=== PATIENT | male | born 1995 | race American Indian/Alaskan Native ===

== ENCOUNTER 2022-01-07 13:51 | Emergency (ER) | payer SELFPAY ==
[2022-01-07 15:36] VITALS: BP 134/68
--- NOTE | 2022-01-07 20:51 | Emergency Department Report ---
ED General Adult HPI - General Chief complaint: Chest Pain Stated complaint: SOB,CHEST PAIN ,HEADACHES Time Seen by Provider: 01/07/22 20:22 Source: patient Mode of arrival: Ambulatory Limitations: No Limitations - History of Present Illness Initial comments: Patient is a 26-year-old male with what he describes as "weird chest pain has been going on daily for 3 months. He states it feels like his chest is inflamed and is a burning sensation worse with movement and inspiration. He also has had some pain in his neck that is also worse with movement and palpation. He states he gets a little short of breath at times but not necessarily related to the chest pain. He does state that he has a history of asthma and has not needed inhalers for 10 years but he wonders if he is having episodes of asthma when this occurs. 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 He does agree that these pains have gotten worse since he started back to the new job. He does have a history of GERD as well but denies acid he taste in the back of his throat. He has not been taking his omeprazole. Location: chest Radiation: non-radiation Severity scale (0 -10): 5 Quality: burning Consistency: intermittent Improves with: none Worsens with: eating, movement Associated Symptoms: denies: confusion, cough, diaphoresis, fever/chills, headaches, loss of appetite, malaise, nausea/vomiting, rash, seizure, syncope, weakness Treatments Prior to Arrival: none - Related Data Previous Rx's Medication Instructions Recorded Last Taken Type Albuterol Sulfate [Proventil Hfa] 6.7 gm IH Q4HR PRN #1 can 01/07/22 Unknown Rx Cyclobenzaprine [Flexeril 10 MG 10 mg PO HS PRN #10 tab 01/07/22 Unknown Rx TAB] Naproxen Sodium [Naproxen Sodium 375 mg PO BID #20 tab 01/07/22 Unknown Rx Cr 375mg] Omeprazole 10 mg PO DAILY #30 cap 01/07/22 Unknown Rx Allergies Allergy/AdvReac Type Severity Reaction Status Date / Time No Known Allergies Allergy Unverified 01/07/22 15:31 ED Review of Systems ROS: Stated complaint: SOB,CHEST PAIN ,HEADACHES Other details as noted in HPI Comment: All other systems reviewed and negative Constitutional: denies: chills, fever Eyes: denies: eye discharge, vision change ENT: denies: throat pain, congestion Respiratory: see HPI Cardiovascular: as per HPI. denies: dyspnea on exertion, edema, syncope, paroxysmal nocturnal dyspnea Endocrine: denies: intolerance to cold, intolerance to heat Gastrointestinal: denies: nausea, vomiting, diarrhea Genitourinary: denies: hematuria Musculoskeletal: as per HPI Skin: denies: rash, lesions, change in color Neurological: denies: headache, weakness, numbness, paresthesias Psychiatric: denies: anxiety, depression Hematological/Lymphatic: denies: easy bleeding, easy bruising ED Past Medical Hx - Past Medical History Previous Medical History?: Yes Hx Asthma: Yes Additional medical history: HEART MURMUR/ POYLPS - Surgical History Past Surgical History?: No - Family History Family history: no significant, other (No history of coronary artery disease or other heart disease at young age.) - Social History Smoking Status: Never Smoker Substance Use Type: Marijuana - Medications Home Medications: Home Medications Medication Instructions Recorded Confirmed Last Taken Type Albuterol Sulfate [Proventil Hfa] 6.7 gm IH Q4HR PRN #1 can 01/07/22 Unknown Rx Cyclobenzaprine [Flexeril 10 MG 10 mg PO HS PRN #10 tab 01/07/22 Unknown Rx TAB] Naproxen Sodium [Naproxen Sodium 375 mg PO BID #20 tab 01/07/22 Unknown Rx Cr 375mg] Omeprazole 10 mg PO DAILY #30 cap 01/07/22 Unknown Rx ED Physical Exam - General Limitations: No Limitations General appearance: alert, in no apparent distress - Head Head exam: Present: atraumatic, normocephalic - Eye Eye exam: Present: normal appearance. Absent: scleral icterus, conjunctival i njection - ENT ENT exam: Present: mucous membranes moist - Neck Neck exam: Present: normal inspection, tenderness (Paraspinous muscles). Absent: meningismus, full ROM - Respiratory Respiratory exam: Present: normal lung sounds bilaterally, chest wall tenderness. Absent: respiratory distress, wheezes, rales, rhonchi - Cardiovascular Cardiovascular Exam: Present: regular rate, normal rhythm, normal heart sounds - GI/Abdominal GI/Abdominal exam: Present: soft. Absent: distended, tenderness, guarding - Extremities Exam Extremities exam: Present: normal inspection, full ROM, normal capillary refill. Absent: pedal edema - Back Exam Back exam: Present: normal inspection. Absent: tenderness - Neurological Exam Neurological exam: Present: alert, CN II-XII intact, normal gait, motor sensory deficit, reflexes normal - Psychiatric Psychiatric exam: Present: normal affect, normal mood - Skin Skin exam: Present: warm, dry, intact ED Course Vital Signs 01/07/22 15:35 Temperature 98.3 F Pulse Rate 59 L Respiratory 20 Rate Blood Pressure 134/68 [Right] O2 Sat by Pulse 100 Oximetry - Reevaluation(s) Reevaluation #1: 01/07/22 22:07 EKG and chest x-ray unremarkable. ED Medical Decision Making - EKG Data EKG shows normal: sinus rhythm Rate: bradycardia - EKG Data 01/07/22 22:08 sinus rhythm at 56 without ischemic changes - Radiology Data Radiology results: report reviewed, image reviewed [address] [address] XRay Report Signed Patient: MEAGAN DAY MR#: [id number] : 1995 Acct:[id number] Age/Sex: 26 / M ADM Date: 01/07/22 Loc: ED Attending Dr: Ordering Physician: CHANCE WILDE Date of Service: 01/07/22 Procedure(s): XR chest routine 2V Accession Number(s): [id number] cc: CHANCE WILDE Fluoro Time In Minutes: CHEST 2 VIEWS INDICATION / CLINICAL INFORMATION: chest pain sob. COMPARISON: None available. FINDINGS: SUPPORT DEVICES: None. HEART / MEDIASTINUM: No significant abnormality. LUNGS / PLEURA: No significant pulmonary or pleural abnormality. No pneumothorax. ADDITIONAL FINDINGS: No significant additional findings. IMPRESSION: 1. No acute findings. Signer Name: Renetta Bolaños MD Signed: 01/07/2022 8:55 PM Workstation Name: [id number] Transcribed By: DT Dictated By: Mati Bolaños MD Electronically Authenticated By: Mati Bolaños MD Signed Date/Time: 01/07/222054 DD/ 54 TD/TT: - Medical Decision Making Given this is reproducible and normal EKG and chest x-ray in this young patient with no risk factors, I believe this is chest wall pain. Patient does have a history of GERD and since I am putting on on anti-inflammatories I recommended that he started his omeprazole again as well. He will follow-up with primary care. - Differential Diagnosis Chest pain. Likely musculoskeletal. Critical care attestation.: If time is entered above; I have spent that time in minutes in the direct care of this critically ill patient, excluding procedure time. ED Disposition Clinical Impression: Chest wall pain, History of asthma, History of gastroesophageal reflux (GERD) Disposition: HOME / SELF CARE / HOMELESS Is pt being admited?: No Condition: Stable Instructions: Nonspecific Chest Pain, Adult Additional Instructions: Naproxen. Cyclobenzaprine. Restart omeprazole for GERD. Refill albuterol. Follow-up with primary care doctorsee referral if you do not have 1. Prescriptions: Cyclobenzaprine [Flexeril 10 MG TAB] 10 mg PO HS PRN #10 tab PRN Reason: Muscle Spasm Naproxen Sodium [Naproxen Sodium Cr 375mg] 375 mg PO BID #20 tab Omeprazole 10 mg PO DAILY #30 cap Albuterol Sulfate [Proventil Hfa] 6.7 gm IH Q4HR PRN #1 can PRN Reason: Wheezing Referrals: SIMA HUMPHREYS MD [Staff Physician] - 3-5 Days Forms: Work/School Release Form(ED) Time of Disposition: 22:24
--- NOTE | 2022-01-07 20:59 | XRay Report ---
CHEST 2 VIEWS INDICATION / CLINICAL INFORMATION: chest pain sob. COMPARISON: None available. FINDINGS: SUPPORT DEVICES: None. HEART / MEDIASTINUM: No significant abnormality. LUNGS / PLEURA: No significant pulmonary or pleural abnormality. No pneumothorax. ADDITIONAL FINDINGS: No significant additional findings. IMPRESSION: 1. No acute findings. Signer Name: Renetta Bolaños MD Signed: 01/07/2022 8:55 PM Workstation Name: [id number]
--- NOTE | 2022-01-08 16:57 | Electrocardiograph Report ---
[facility] Test Date: 2022-01-07 Test Time: 15:44:08 Pat Name: MEAGAN DAY Department: Room: Gender: M Car Chaser: [place] : 1995 Requested By: CHAVO SHELLEY Order Number: [id number] Reading MD: Chandrika Hines Measurements Intervals [place] Rate: 56 P: 53 MO: 147 QRS: 53 QRSD: 90 T: 41 QT: 405 QTc: 390 Interpretive Statements Sinus rhythm No previous ECG available for comparison Electronically Signed On 01-08-2022 16:57:03 EDT by Chandrika Hines
== END 2022-01-07 23:04 | disposition home or self-care (01) ==
LOC: ED 13:51
DX: R07.89 Other chest pain (principal); K21.9 Gastro-esophageal reflux disease without esophagitis; J45.909 Unspecified asthma, uncomplicated
CPT/HCPCS: 71046; 93005; 99283